=== PATIENT | female | born 1930 | race Caucasian/White ===

== ENCOUNTER → 2017-03-29 | Outpatient (CLI) | payer OTHER ==
[~2017-03-29] MED LIST: ACETAMINOPHEN325 M1 PO; ANTACID650 MG PO; ASPIRIN325 PO; COZAAR100 MG PO; FERROUS SULFAT325 M1 PO; FISH OIL 1,001000 M1 PO; FUROSEMIDE 80 M80 M1 PO; LANSOPRAZOLE30 MG PO; LEVOTHYROXINE0.05 MG PO; MOM PO; ONE DAILY MULT1 EAC2 PO; POTASSIUM20 PO; PREVACID PO; REMERON15 MG PO; SMOOTHLAX17 GM PO; SODIUM BICARBO650 M3 PO; TOPROL XL50 MG PO; ZOCOR 20 MG TAB20 M1 PO
== END ==
LOC: RAD 03:12
DX: Z12.31 Encounter for screening mammogram for malignant neoplasm of breast (principal)

== ENCOUNTER 2018-03-15 15:16 | Inpatient (IN) | payer OTHER ==
[~2018-03-15] VITALS: Ht 160 cm; Wt 69.4 kg
--- NOTE | ~2018-03-15 | H ---
[facility] [place] [address] HISTORY AND PHYSICAL Name: JESSICA MARTÍNEZ Room #: 355-P ADM IN M.R.#: [id number] Admission: 03/15/18 Attend Phys: Luke Garcia MD Discharge: Date of : [birth year] Report #: [id number] THIS REPORT FOR: //name// CC: Rohith Horne MD [facility] Luke Garcia DATE OF SERVICE: 03/15/2018 CHIEF COMPLAINT: Nausea and vomiting. HISTORY OF PRESENT ILLNESS: The patient is an 87-year-old Taiwanese female who lives at the [facility] where she has resided for approximately 10 years after having had a stroke during carotid stenting. Over the past several weeks, she has had problems with worsening dyspepsia and as of Wednesday, her nausea and vomiting has developed leaving her unable to keep anything down. She says that her appetite has definitely been off the last several weeks and she has lost some weight, although it is unclear exactly how much at this time. The patient is deemed a fair historian. She states that she has soft bowel movements with her current medication regimen, but cannot recall when her last bowel movement occurred. She has not seen any blood either in the emesis or in stools anytime recently. 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 MEDICATIONS: Her medication list at [facility] is as follows: Amlodipine, Calmoseptine p.r.n., Cepacol throat lozenges, doxycycline intermittently for dental infections, isosorbide mononitrate, Mucinex, Natural Balance Tears p.r.n., nitroglycerin, Preparation H suppositories, ranitidine 150 mg by mouth twice daily, sodium bicarbonate p.r.n. dyspepsia, Mylanta p.r.n. dyspepsia, milk of magnesia p.r.n. constipation, Tylenol p.r.n. pain or fever, MiraLax daily, levothyroxine daily, multivitamin with iron daily, mirtazapine at bedtime, simvastatin nightly, fish oil twice daily, furosemide 80 mg twice daily, metoprolol succinate 50 mg twice daily, potassium chloride 20 mEq twice daily, aspirin 325 mg daily, losartan 100 mg by mouth daily, ferrous sulfate 325 mg daily with food. The Prevacid was recently restarted and the ranitidine was stopped when the patient developed these symptoms. Change occurred in the last 1-2 weeks, I am pretty sure. DRUG ALLERGIES: INCLUDE QUINOLONES (CIPRO AND MOXIFLOXACIN BOTH CAUSE PROBLEMS), PENICILLIN, CLINDAMYCIN. [address] [address] HISTORY AND PHYSICAL Name: JESSICA MARTÍNEZ Room #: 355-P [facility] IN M.R.#: [id number] Admission: 03/15/18 Attend Phys: Luke Garcia MD Discharge: Date of : [birth year] Report #: [id number] FAMILY HISTORY: Significant for Parkinson disease in a brother who a couple of years ago, hypertension and coronary artery disease. SOCIAL HISTORY: The patient is a [place]ese woman who has a Ph.D. in education in [place]. 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 She had 2 children, one of whom, the son, of complications of multiple sclerosis and bipolar affective disorder. I believe his father also suffered from bipolar disorder. She has a remaining daughter, Layne Good and several grandchildren including a pharmacist and a soon-to-be dentist. She is a nonsmoker and does not have any vices. REVIEW OF SYSTEMS: The patient reports that she has not had any significant pain. She denies shortness of breath or headaches. She does admit to not sleeping well because of the nausea and vomiting lately. She does admit to frequently requesting and getting both Mylanta and milk of magnesia for her gastrointestinal symptoms. She denies urinary frequency. She denies dysuria. She denies fever or chills or sweats. As mentioned above, her ability to give history is fair at best. PHYSICAL EXAMINATION: VITAL SIGNS: In the Emergency Room showed temperature of 36.9 degrees Celsius on arrival with a pulse of 84, respirations of 24, oxygen saturation of 95% on room air, blood pressure of 136/108 initially and a weight of 160 pounds by report. I saw the patient in her hospital room later on in the evening and her blood pressure was significantly better with a systolic reading in the 150s and the diastolic below 100. GENERAL: Pleasant, but tired-looking elderly Taiwanese female, in no distress at the time of my visit. HEENT: The extraocular muscles are intact. The oropharynx is dry and so are the lips. The eyes appear slightly sunken. The cheeks although thinner are not hollow. Hearing is grossly normal. Speech is grossly normal. NECK: Without adenopathy or thyromegaly, mass or significant bruit tonight. LUNGS: Show bibasilar crackles without wheezes or dyspnea or tachypnea. CARDIOVASCULAR: Reveals a regular rhythm, without any significant new murmur, gallop or rub. ABDOMEN: Soft, diffusely, possibly slightly distended, but no visceromegaly or masses noted. No bruits also noted. EXTREMITIES: No cyanosis or clubbing or peripheral edema. She does have significant weakness on the left side, both upper and lower extremities as opposed to the right, although the left lower extremity is particularly more affected. Peripheral pulses easily palpated in all 4 distal extremities. MENTAL STATUS: She is alert. She is fully oriented to person and place and time. No hallucinations or delusions at the time of my examination. Her long-term memory is better than her short-term memory per gross observation. [address] [address] HISTORY AND PHYSICAL Name: JESSICA MARTÍNEZ Jerry Room #: 355-P [facility] IN M.R.#: [id number] Admission: 03/15/18 Attend Phys: Luke Garcia MD Discharge: Date of : [birth year] Report #: [id number] LABORATORY DATA: Chest x-ray shows "chronic appearing" basilar infiltrates bilaterally. CT scan of the abdomen and pelvis shows the sigmoid anastomosis, the presence of gallbladder stones or sludge without obstruction or pericholecystic fluid, 1 cm solid-appearing mass in the lower pole of left kidney, and a small to moderate size hiatal hernia, which appears decreased slightly in size from a previous study. An EKG was done in the Emergency Room that showed a normal sinus rhythm with frequent PVCs. LABORATORY DATA: Chemistry showed a sodium of 135, which is borderline low, potassium of 5.0, chloride of 101, bicarbonate 25, anion gap of 9, BUN is 39, creatinine 1.3, estimated GFR was also 39 and the nonfasting glucose is 115. Venous lactic acid level was 1.1 and normal. Serum calcium level was elevated at 11.4, with the top of normal at 10.1. The albumin was 3.9 and normal and the total protein was 8.1. The total bilirubin was normal at 0.3. The AST and ALT were normal at 20 and 16 respectively. Alkaline phosphatase was normal at 109, lipase was normal at 258. Amylase was not obtained. The CBC showed a white blood cell count of 10,900, which is about the upper limits of normal. Differential showed 70.2% segmented neutrophils, 19% lymphocytes, 9.5% monocytes, 1% eosinophils and 0.3% basophils. The ANC was 7600. The hemoglobin was 12.1 with hematocrit 36.1. Red cell indices showed a normal mean cell volume of 91.4 and normal red cell distribution width of 13.7 and the platelet count was normal at 363,000. ASSESSMENT AND PLAN: 1. Intractable nausea and vomiting with suspected weight loss -- multiple etiologies are possible in this setting. Certainly, I am concerned with her apparent lack of obstruction on CT with symptoms that suggest otherwise. Her hiatal hernia does not appear to be a problem, although recurrent chronic reflux may cause strictures, and I think this will need to be investigated endoscopically. I have requested a Gastroenterology consult with Dr. Horne. Similarly, I am suspicious of aspiration due to oropharyngeal dysphagia and I have requested a video swallow since eating tends to provoke her symptoms even more. 2. Hypercalcemia, etiology uncertain -- the patient's tendency to use milk of magnesia and/or Mylanta excessively, and especially in the presence of chronic kidney disease (GFR of 39), I suspect this is the most likely cause. Other considerations could be hyperparathyroidism and we will obtain a parathyroid hormone levels as well as 25-hydroxy vitamin D and ionized calcium to further assess this. Hypothyroidism control will be assessed with TSH. For now, we will hold these calcium-containing antacids and constipation medicines to see if that helps. IV fluids should also help dilute the situation if it is due to too much intake. Please note the patient does not drink much in the way of milk when questioned about it, so I doubt this is a case of milk-alkali syndrome. Her serum bicarbonate level further argues against this. 3. Possible aspiration pneumonia. We will start the patient on intravenous antibiotics and obtain serial chest x-rays. Her white count is not particularly [facility] [address] [place] [address] HISTORY AND PHYSICAL Name: JESSICA MARTÍNEZ Room #: 355-P ADM IN M.R.#: [id number] Admission: 03/15/18 Attend Phys: Luke Garcia MD Discharge: Date of : [birth year] Report #: [id number] impressive, but she is elderly and has multiple medical problems and certainly is at risk for aspiration given the current history. 4. New left lower pole 2 cm renal mass -- we will get an ultrasound to further assess her abdominal situation. I did mention these results with the patient tonight, but do not feel that it is part of the clinical presentation and is barely an incidental finding. The only exception might be renal cell carcinoma, which could be associated with hypercalcemia. 5. Cholelithiasis without evidence of obstruction -- if she does have gallbladder disease, she might need a more functional study such as a HIDA scan to flush this out as I believe other issues need to be addressed first. We will await the results of the ultrasound before commenting on this further. 6. Hiatal hernia and history of gastroesophageal reflux disease -- see above discussion regarding nausea, vomiting, weight loss and need for EGD and video swallow. 7. Prior stroke with residual left hemiparesis, status post attempted carotid stent -- no evidence of issues with this recently. 8. History of breast cancer without recurrence. 9. Coronary artery disease with prior history of myocardial infarction in 2001. 10. Osteoarthritis, multiple sites. 11. Hypertension. 12. Hyperlipidemia. 13. Hemorrhoids. 14. Chronic anxiety and depression. 15. Hypothyroidism. 16. Diverticulosis with prior history of sigmoid resection. <ELECTRONICALLY SIGNED> By: Luke Garcia MD 03/16/18 1055 0030 0140 Luke Garcia MD /nt
--- NOTE | ~2018-03-15 | P ---
[facility] [place] [address] PROCEDURE REPORT Name: JESSICA MARTÍNEZ Room #: 423-1 [facility] IN M.R.#: [id number] Admission: 03/15/18 Attend Phys: Luke Garcia MD Discharge: Date of : [birth year] Report #: [id number] THIS REPORT FOR: //name// CC: Luke Garcia MD INPATIENT UPPER ENDOSCOPY BRIEF HISTORY: The patient is an 87-year-old woman with multiple medical problems who presented to [facility] with nausea, vomiting and difficulty swallowing. There is also a concern for aspiration. Case was discussed in detail with Dr. Garcia and also interviewed the patient personally. She has been unable to eat. A video swallow did not reveal obvious aspiration. PREOPERATIVE DIAGNOSES: Nausea, vomiting and possibly aspiration. POSTOPERATIVE DIAGNOSES: 1. Multiple duodenal ulcers, nonbleeding. 2. Diffuse gastritis. 3. Moderately large hiatus hernia. 4. Grade B erosive esophagitis. 5. Presbyesophagus. MEDICATIONS: Deep sedation with propofol per Anesthesia. SPECIMEN: Biopsies of gastritis. ESTIMATED BLOOD LOSS: 3 mL. PROCEDURE: EGD with biopsy and Amin dilation. FINDINGS: Prior to propofol sedation, procedure of upper endoscopy was discussed with the patient as well as potential risks and its complications. She indicates she understands and desires to proceed. DESCRIPTION OF PROCEDURE: With the patient in left lateral decubitus position, the Olympus video endoscope was inserted in the cervical esophagus under direct vision without difficulty. Examination of this organ through its entire length revealed normal esophageal mucosa down to the squamocolumnar junction. The squamocolumnar junction was inspected and multiple erosions were seen, some extending in the distal body of the esophagus. There was also some tortuosity of the distal esophagus, likely related to her moderately large hiatus hernia. There is no evidence of Cruz's mucosa. There has been some dysphagia, but a definite stricturing was not seen, but this patient may be a result of esophagitis as well as tortuosity of distal esophagus. Few tertiary contractions were seen and she likely has presbyesophagus as well. The scope was advanced in a moderately large hiatus hernia. A small amount of fluid was [facility] [address] [place] [address] PROCEDURE REPORT Name: JESSICA MARTÍNEZ Room #: 423-1 ADM IN M.R.#: [id number] Admission: 03/15/18 Attend Phys: Luke Garcia MD Discharge: Date of : [birth year] Report #: [id number] seen at the hiatus hernia. The fluid was aspirated away. The scope was advanced in the stomach, was examined on end view as well as retroflexed views. There was a pattern of a diffuse gastritis with a few erosions in the antrum, but no ulcers were seen. Upon retroflexion, the hiatus hernia was seen, but a mass lesion was not seen. Biopsies obtained of the gastritis. Scope was advanced in the duodenal bulb and multiple duodenal ulcers were seen. The largest was no more than about 8 mm. They had a minimal to moderate depth. There was no evidence of active bleeding. No exposed vessels or clots were seen. There was also mucosal edema, but the scope did pass into duodenum without difficulty. There was no evidence of obstruction. There were few ulcers in the proximal second portion of the duodenum, but beyond that was normal. There was no evidence of obstruction. At that point, the scope was slowly withdrawn and careful circumferential views confirmed the above findings. The patient tolerated the procedure well. Due to problem of dysphagia, a 50-Hungarian Amin dilator was passed with no resistance. The patient tolerated the procedure well. DISPOSITION: The patient with multiple GI problems as noted above. She does have active duodenal ulcer disease. We will place her on a PPI. We will follow up on biopsies obtained today as well. She certainly may be refluxing and aspirating. Antireflux measures will be helpful. As far as her vomiting, that may be a result of her duodenal ulcers. By: 1418 2315 Talon Edwards MD /stephanie
--- NOTE | ~2018-03-15 | D ---
[facility] [place] [address] DISCHARGE SUMMARY Name: JESSICA MARTÍNEZ Room #: 224-P [facility] IN M.R.#: [id number] Admission: 03/15/18 Attend Phys: Lacie Hayes MD Discharge: 03/22/18 Date of : [birth year] Report #: [id number] THIS REPORT FOR: //name// CC: [facility] Luke Hayes DATE OF SERVICE: 03/21/2018 ANTICIPATED DATE OF DISCHARGE: 03/22/2018. HOSPITAL COURSE: The patient is an 87-year-old Samoan female who was admitted with intractable nausea and vomiting. Chest x-ray showed "chronic appearing" basilar infiltrates bilaterally. She was started on treatment for pneumonia with nebulizer medications for pulmonary toilet and azithromycin only (see list of drug allergies for multiple antibiotic intolerances). Swallowing study suggested that she did not have a severe dysphagia, although there was suggestion that she might have some mild dysphagia. With supportive care the patient began feeling better. GI consult was also obtained and the weatherization coordinator from Dr. Choi, Dr. Edwards, Dr. Horne and Dr. Miranda's group put her back on a proton pump inhibitor, which she had been on previously for a number of years and had recently been downgraded to a H2 receptor lew due to her insurance policy. The patient clearly improved with the resumption of proton pump inhibitor therapy. Complicating matters, she was found to have significant hypercalcemia and hypermagnesemia, the former being about 11.5 on arrival and the first magnesium level was about 2.8 and both are considered to be elevated. The patient was taken off of the Mylanta and the milk of magnesia medications that were being given as needed for dyspepsia and constipation. Coupled with aggressive rehydration therapy with IV fluids, the patient's calcium improved and her magnesium began improving, and subsequently her coughing improved and her vomiting resolved. She did undergo upper endoscopy, which showed multiple shallow duodenal ulcers and antral erosions and a moderately large hiatal hernia, which was felt could contribute to regurgitation and possible aspiration (see chest x-ray readings above). H. pylori was tested for and found to be absent from her stomach biopsies. In addition to the above, the patient also had at least a grade B esophagitis. Given her rapid improvement with supportive care as outlined above, it was felt that the patient will most likely be best served with lifelong proton pump inhibitor therapy. The patient was also found to have significant blood pressure elevations during this admission. She was put back on her amlodipine at 5 mg daily and this was increased to 10 mg daily. Her losartan was increased from 50 up to [address] [address] DISCHARGE SUMMARY Name: JESSICA MARTÍNEZ Room #: 224-P [facility] IN M.R.#: [id number] Admission: 03/15/18 Attend Phys: Lacie Hayes MD Discharge: 03/22/18 Date of : [birth year] Report #: [id number] and she was maintained on her metoprolol at 50 mg twice daily. Her blood pressures had decreased to a systolic range of about 140-150 at the time of discharge and given the prolonged improvement in blood pressure control with increased doses of amlodipine, it is felt that this is adequate for now and will possibly even lower her blood pressure excessively later, and then need to be reduced. The patient is also on diuretic therapy with hydrochlorothiazide for blood pressure. At the time of discharge the patient is on the following medications: Mirtazapine 15 mg by mouth nightly, simvastatin 10 mg by mouth nightly, acetaminophen 325 mg 2 tablets by mouth every 4 hours as needed for pain, furosemide 80 mg by mouth every morning, metoprolol succinate 50 mg by mouth twice daily, potassium chloride 20 mEq by mouth twice daily, aspirin 325 mg by mouth daily, levothyroxine 50 mcg by mouth daily, multivitamin 1 by mouth daily, Calmoseptine ointment as needed, isosorbide mononitrate 60 mg by mouth daily, natural tears as needed for dry eyes, nitroglycerin 0.4 mg sublingual every 5 minutes up to 3 times per episode of chest pain, Preparation-H suppositories as needed for hemorrhoidal irritation, Lacrilube ointment apply to her lower eyelids at bedtime every night, amlodipine 10 mg by mouth nightly, losartan 100 mg by mouth nightly, lorazepam 0.5 mg at bedtime as needed for anxiety or insomnia up to 30 days only, hydrochlorothiazide 12.5 mg by mouth daily in the morning, MiraLax 17 grams by mouth twice daily in a glass of water and pantoprazole 40 mg by mouth daily. She would be on a soft mechanical diet with thin liquids and will return to [facility] for further care. I will follow her there. DISCHARGE DIAGNOSES: 1. Intractable nausea and vomiting due to #2. 2. Multiple gastric and duodenal ulcers. 3. Moderately large hiatal hernia. 4. Grade B esophagitis. 5. Hypertension. 6. History of coronary artery disease. 7. History of carotid occlusive disease. 8. History of stroke, status post stenting of carotid occlusive disease. 9. Osteoarthritis, multiple sites. 10. Chronic left hemiparesis from prior stroke. 11. Chronic anxiety. 12. Hypercalcemia with elevated parathyroid hormone levels and normal vitamin D (suspicious for parathyroid adenoma). 13. Hypermagnesemia. 14. Excessive antacids and constipation medicines. This is a note reflecting the hypercalcemia and hypermagnesemia mentioned above. The patient was worked up for vitamin D adequacy and this was normal. The patient had a parathyroid hormone level that was elevated in the presence of [facility] [address] [place] [address] DISCHARGE SUMMARY Name: JESSICA MARTÍNEZ Jerry Room #: 224-P [facility] IN M.R.#: [id number] Admission: 03/15/18 Attend Phys: Lacie Hayes MD Discharge: 03/22/18 Date of : [birth year] Report #: [id number] hypercalcemia and this suggests the presence of parathyroid adenoma. With adequate intravenous hydration, her calcium level fell from 11.5 down to less than 9.5. I discussed this matter at length with the family. We also did an ultrasound of the thyroid area looking for parathyroid adenoma. 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 A separate parathyroid adenoma could not be distinguished. If a further workup is needed in the future, for example if her calcium levels rise again, we could then consider a sestamibi parathyroid scan. However, in the event that her calcium levels remain low or manageable, the likelihood of parathyroid adenoma would be small and could be managed either surgically with parathyroidectomy or medically with Sensipar. My plan is to continue monitoring her calcium levels intermittently and I have explained these findings to the patient and her daughter, Layne, and they are agreeable to proceeding down this route. The patient is particularly anxious to avoid any unnecessary surgeries and I agree. <ELECTRONICALLY SIGNED> By: Luke Garcia MD 03/25/18 1057 [id number] 28 Luke Garcia MD /nt
--- NOTE | ~2018-03-15 | EKG ---
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: eddi : 1930 Requested By: Kota Riojas Order Number: [id number] MD: Ricardo Malave Measurements Intervals [place] Rate: 83 P: 38 AK: 194 QRS: 4 QRSD: 97 T: 33 QT: 405 QTc: 476 Interpretive Statements Sinus rhythm Multiform ventricular premature complexes Compared to ECG 05/29/2011 09:10:51 Ventricular premature complex(es) now present Electronically Signed On 03-15-2018 16:40:04 CDT by Ricardo Malave [email or web address] <ELECTRONICALLY SIGNED> By: Ricardo Malave MD 03/15/18 1640 1547 154 Ricardo Malave MD /[email or web address]
--- NOTE | ~2018-03-15 | HC ---
[facility] [place] [address] CONSULTATION Name: JESSICA MARTÍNEZ Room #: 423-1 [facility] IN .R.#: [id number] Admission: 03/15/18 Attend Phys: Luke Garcia MD Discharge: Date of : [birth year] Report #: [id number] THIS REPORT FOR: //name// CC: Luke Garcia MD DATE OF SERVICE: 03/16/2018 GASTROENTEROLOGY CONSULTATION PATIENT OF: Luke Garcia M.D. CHIEF COMPLAINT: This is a very pleasant 87-year-old [place] female who I am asked to evaluate for possible etiologies of ongoing nausea and vomiting. The patient denies any abdominal pain. She has had some constipation recently. Her stools have been brown in color. There has been no history of hematemesis, hematochezia or melena. PAST MEDICAL HISTORY: Significant for breast cancer. 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 She has a history of coronary artery disease and had a myocardial infarction in the past. She has a history of hypertension, hyperlipidemia, hypothyroidism, diverticulosis, colon polyps, osteoarthritis, anxiety and depression and a history of hemorrhoids. PAST SURGICAL HISTORY: Significant for a partial sigmoid resection. ALLERGIES: QUINOLONES, SPECIFICALLY CIPROFLOXACIN AND MOXIFLOXACIN. SHE IS ALSO ALLERGIC TO CLINDAMYCIN AND PENICILLIN. MEDICATIONS: Her medications prior to admission included acetaminophen, Norvasc, aspirin 325 mg daily, Cepacol throat lozenges, Natural Balance eyedrops, doxycycline 100 mg p.o. b.i.d., iron supplements, Lasix, Mucinex, Imdur, Prevacid, levothyroxine 50 mcg, Cozaar, milk of magnesia, Calmoseptine ointment, metoprolol, mineral oil with petrolatum, mirtazapine, multiple vitamins, Nitrostat, Greenway-3 fish oil, Preparation-H suppositories, polyethylene glycol powder, potassium supplements, Zantac, simvastatin, antiacid tablets, Aldactone and Witch Jessica tucks or pads. SOCIAL HISTORY: The patient lives at the [facility]. She does not smoke or drink alcohol. She is a . She has a Ph.D. in Education from [employer]. FAMILY HISTORY: Negative for gallbladder disease, colon polyps and colon carcinoma, Crohn's disease and ulcerative colitis. [address] [address] CONSULTATION Name: JESSICA MARTÍNZE Room #: 423-1 [facility] IN .R.#: [id number] Admission: 03/15/18 Attend Phys: Luke Garcia MD Discharge: Date of : [birth year] Report #: [id number] REVIEW OF SYSTEMS: She denies any dysphagia, odynophagia, gastroesophageal reflux or peptic ulcer disease. She has had a history of a hiatal hernia. She has been losing weight recently because of a poor appetite and she is afraid to eat because of the nausea and vomiting. She has chronic constipation, has been taking a lot of antacids for this. This may be another etiology of her hypercalcemia, as you have suspected. She denies any diarrhea. She denies any hematemesis, hematochezia or melena. She denies any abdominal pain. PHYSICAL EXAMINATION: GENERAL: Reveals a well-developed, well-nourished 87-year-old white female, in no apparent distress at the time of the examination. She is awake, alert, oriented x 4 and cooperative and very pleasant to converse with. HEENT: She is normocephalic, atraumatic and anicteric. HEART: Rate and rhythm are regular, with a normal S1 and S2. She does have a grade 2/6 systolic murmur. LUNGS: Clear bilaterally. ABDOMEN: Soft. She feels as if her abdomen is distended. Bowel sounds are present in all 4 quadrants. She is tympanic to percussion. There is no palpable organomegaly or mass. There is tenderness in the epigastrium and in the right upper quadrant, but no rebound or guarding. EXTREMITIES: Warm and dry. No peripheral cyanosis, clubbing or edema. NEUROLOGIC: She has a left-sided paralysis. SIGNIFICANT LABORATORY DATA: Creatinine is 1.2 today. Magnesium 2.8. Liver enzymes are normal. Lactate level is 1.1. CBC shows a white count of 10.9, hemoglobin 12.1, hematocrit 91.4. Indices and RDW are all within normal limits. Platelets are 363,000. Sed rate is 41. TSH is 2.275. Urinalysis is pending. The patient has had speech evaluation, but I do not have the results of that yet from this morning. She has had an ultrasound of the abdomen that showed an indeterminate mass in the inferior pole of the left kidney. This is hypoechoic and likely represents either a complex hemorrhagic cortical cyst or a solid renal mass. Gallstones were also seen, but no choledocholithiasis or ductal dilatation was seen. CT scan of the abdomen was done yesterday and showed small gravel-like gallstones. No liver lesions. No ductal dilatation. Pancreas was unremarkable. Again, the 2.5-cm solid-appearing left lower pole renal mass is present. There was a small moderate hiatal hernia. It should be noted that on the CT scan done on 05/28/2011, the patient had bilateral renal lesions, some were subtle, which were hyperdense and probably represented hemorrhagic cysts. One area was only slightly hyperdense in the posterior right kidney and was indeterminate. Small solid masses could not be excluded at that time. For this reason, it does sound like this renal mass may be a different mass as it is in the left kidney. Significant laboratory data was included here. IMPRESSION: 1. Nausea, vomiting, anorexia, and weight loss of uncertain etiology, with [facility] [address] [place] [address] CONSULTATION Name: JESSICA MARTÍNEZ Room #: 423-1 ADM [place] [facility]#: [id number] Admission: 03/15/18 Attend Phys: Luke Garcia MD Discharge: Date of : 09/[birth year] Report #: [id number] tenderness to palpation in the epigastrium and right upper quadrant. The patient has possible dysphagia with aspiration. She has a new cough. Speech Therapy is evaluating her currently with a video swallow to determine if she is aspirating. She has a history of laryngospasm, when Dr. Miranda tried to do an EGD on her in 2016. 2. Cholelithiasis, symptomatic? No ductal dilatation. Liver enzymes and lipase are normal. 3. Diverticulosis with a history of partial sigmoid resection. Last colonoscopy was in [address] Miranda and revealed only uncomplicated left-sided diverticulosis and a resected sigmoid was also seen. 4. Left lower pole renal mass 2.6; complex cyst versus malignancy. 5. History of a right cerebrovascular accident with left hemiparesis. 6. History of left breast cancer with mastectomy. 7. Hypertension. 8. Hyperlipidemia. 9. Hypothyroidism. 10. Hypercalcemia that resolved with hydration. The patient has been taking antacids prior to this. 11. History of colon polyps, hemorrhoids and constipation. 12. Anxiety and depression. RECOMMENDATIONS: 1. My recommendations were for her to have an EGD tomorrow morning. We will check a PIPIDA scan to evaluate her right upper quadrant pain more thoroughly as she does have cholelithiasis and tenderness at Walters's point to palpation as well as epigastric tenderness. 2. Proton pump inhibitors are appropriate. Thank you very much once again for allowing me to participate in her care. <ELECTRONICALLY SIGNED> By: Jeanne Choi DO 03/17/18 [id number] Jeanne Choi DO /nt
--- NOTE | ~2018-03-15 | PATH ---
[facility] [address] [address] PATHOLOGY RPT PROCEDURE Name: JESSICA MAY Room #: 224-P [facility] IN M.R.#: [id number] Admission: 03/15/18 Date of : [birth year] Discharge: Report #: [id number] Path Case #: [id number] [facility] Accession Number: [id number] . 01 Material submitted: . GASTRITIS R/O HPYLORI BX . 01 Clinical history: . Pre-OP DX: Nausea, vomiting, dysphagia Post-OP DX: Gastritis, duodenal ulcer, esophagitis . 02 Diagnosis: Gastric mucosa, gastritis rule out H. pylori, endoscopic biopsy: - Mild chronic active gastritis. - Negative for intestinal metaplasia, dysplasia or atrophy. - Negative for definite Helicobacter Pylori (see comment). 03/21/2018 . 02 Comment: No definite organisms are identified on well-controlled Helicobacter pylori immunohistochemical stain performed on block A1.Erica test is reported as negative as well. Please refer to a separate report. (IUV:pit; 03/21/2018) . 02 Electronically signed: . Renee Dumont MD, Pathologist NPI- [id number] . 01 Gross description: . Received in formalin labeled "Jessica May, gastritis, rule out H. pylori," are 5 segments of goldstein soft tissue measuring 1.5 x 0.9 x 0.3 cm in aggregate dimensions and ranging from 0.3 to 0.6 cm in maximum dimension. The specimen is submitted entirely in cassette A1. (TSD; 03/18/2018) TOB/TOB . 02 Pathologist provided ICD-10: K29.50 . 02 CPT . 998176, [id number] Performed at: [address] [id number] MD Jose Cooley MD Phone: [phone] Performed at: 02 [facility] [address] [place] [address] PATHOLOGY RPT PROCEDURE Name: JESSICA MAY Room #: 224-P ADM IN M.R.#: [id number] Admission: 03/15/18 Date of : [birth year] Discharge: Report #: [id number] Path Case #: [id number] [address] [place] [id number] MD Renee Dumont MD Phone: [phone]
[~2018-03-15 15:16] MED LIST changes: -LEVOTHYROXINE0.05 MG PO; +LEVOTHYROXINE50 MCG PO
[2018-03-15 15:57] LABS: ABSOLUTE NEUTROPHILS 7.6 thou/uL (1.4-8.2); BASOPHILS 0.3 % (0.0-2.0); HEMATOCRIT 36.1 % (37.0-47.0); HEMOGLOBIN 12.1 gm/dL (12.0-15.0); MCH 30.6 pg (26.0-34.0); MCHC 33.5 g/dL (28.0-37.0); MCV 91.4 fL (80.0-100.0); MONOCYTES 9.5 % (1.0-8.0); PLATELET COUNT 363 thou/uL (150-400); POLYS 70.2 % (36.0-66.0); RBC 3.95 mil/uL (4.20-5.00); RDW 13.7 % (10.5-14.5); WBC 10.9 thou/uL (4.0-11.0)
[2018-03-15] MEDS ORDERED: NORVASC5 MG PO (16:02)
[2018-03-15] MEDS ORDERED: CALMOSEPTINE O3.5 GM TOP (16:06)
[2018-03-15] MEDS ORDERED: CEPACOL SORE T1 EAC7 PO (16:06)
[2018-03-15 16:09] LABS: CALCIUM 11.4 mg/dL (8.5-10.1); CREATININE 1.3 mg/dL (0.6-1.0)
[2018-03-15] MEDS ORDERED: DOXYCYCLINE 10100 MG PO (16:10)
[2018-03-15] MEDS ORDERED: IMDUR 60 MG TAB60 M1 PO (16:11)
[2018-03-15] MEDS ORDERED: MUCINEX600 MG PO (16:12)
[2018-03-15] MEDS ORDERED: NATURAL BALANCE15 M1 OPHTHALMIC (16:13)
[2018-03-15 16:14] LABS: ALBUMIN 3.9 g/dL (3.4-5.0); TOTAL BILIRUBIN 0.3 mg/dL (<0.1-1.0); TOTAL PROTEIN 8.1 g/dL (6.4-8.2)
[2018-03-15] MEDS ORDERED: NITROSTAT0.4 M1 SUBLING (16:14)
[2018-03-15] MEDS ORDERED: PREPARATION H1 EAC5 RECTAL (16:27)
[2018-03-15] MEDS ORDERED: ZANTAC 150MG T150 MG PO (16:28)
[2018-03-15] MEDS ORDERED: ANTACID650 MG PO (16:30)
[2018-03-15 18:20] VITALS: BP 162/65
[2018-03-15 18:40] VITALS: BP 184/79
[2018-03-15 20:00] VITALS: BP 156/73
[2018-03-15] MEDS ORDERED: REFRESH LACRI-3.5 GM (20:56)
[2018-03-15] MEDS ORDERED: ALDACTONE25 MG PO (20:57)
[2018-03-15] MEDS ORDERED: TUCKS1 EAC1 TOP (20:58)
[2018-03-16] VITALS: BP 139/64
[2018-03-16 04:35] VITALS: BP 155/64
[2018-03-16 05:35] LABS: CALCIUM 9.9 mg/dL (8.5-10.1); CREATININE 1.2 mg/dL (0.6-1.0); MAGNESIUM 2.8 mg/dL (1.8-2.4); POTASSIUM 4.5 mmol/L (3.5-5.1)
[2018-03-16 07:25] LABS: CALCIUM 9.6 mg/dL (8.5-10.1); CREATININE 1.2 mg/dL (0.6-1.0); PHOSPHORUS 3.5 mg/dL (2.5-4.9)
[2018-03-16 07:57] VITALS: BP 158/69
[2018-03-16 12:19] VITALS: BP 152/58
[2018-03-16 15:37] VITALS: BP 149/61
[2018-03-16 17:12] LABS: CALCIUM IONIZED* 5.8 mg/dL (4.5-5.6)
[2018-03-16 19:45] VITALS: BP 150/47
[2018-03-17 03:40] VITALS: BP 147/47
[2018-03-17 06:10] LABS: 25-HYDROXY TOTAL 33.8 ng/mL (30.0-100.0)
[2018-03-17 19:54] VITALS: BP 148/55
[2018-03-18 04:25] VITALS: BP 175/61
[2018-03-18 09:00] VITALS: BP 155/78
[2018-03-18 09:14] VITALS: BP 155/78
[2018-03-18 09:45] LABS: HEMATOCRIT 32.8 % (37.0-47.0); HEMOGLOBIN 11.1 gm/dL (12.0-15.0); MCH 31.1 pg (26.0-34.0); MCHC 33.9 g/dL (28.0-37.0); MCV 91.7 fL (80.0-100.0); RBC 3.58 mil/uL (4.20-5.00)
[2018-03-18 09:52] LABS: CALCIUM 9.4 mg/dL (8.5-10.1); CREATININE 0.8 mg/dL (0.6-1.0); POTASSIUM 4.1 mmol/L (3.5-5.1)
[2018-03-18 15:50] VITALS: BP 155/78
[2018-03-18 20:10] VITALS: BP 164/72
[2018-03-19 04:48] VITALS: BP 168/65
[2018-03-19 06:56] VITALS: BP 186/88
[2018-03-19 15:16] VITALS: BP 172/99
[2018-03-19 20:00] VITALS: BP 153/65
[2018-03-20 07:30] VITALS: BP 190/77
[2018-03-20 11:45] VITALS: BP 157/72
[2018-03-20 20:00] VITALS: BP 149/75; BP 158/82
[2018-03-21 06:49] VITALS: BP 140/59; BP 146/56
[2018-03-21 06:52] VITALS: BP 140/59
[2018-03-21 07:13] LABS: HEMATOCRIT 31.7 % (37.0-47.0); HEMOGLOBIN 10.6 gm/dL (12.0-15.0); MCH 30.5 pg (26.0-34.0); MCHC 33.4 g/dL (28.0-37.0); MCV 91.3 fL (80.0-100.0); RBC 3.47 mil/uL (4.20-5.00); WBC 7.4 thou/uL (4.0-11.0)
[2018-03-21 07:27] LABS: CALCIUM 9.3 mg/dL (8.5-10.1); CREATININE 1.1 mg/dL (0.6-1.0); POTASSIUM 4.1 mmol/L (3.5-5.1)
[2018-03-21 20:08] VITALS: BP 135/54
[2018-03-21] MEDS ORDERED: AMLODIPINE BESY10 MG PO (20:27)
[2018-03-21] MEDS ORDERED: COZAAR100 MG PO (20:28)
[2018-03-21] MEDS ORDERED: ATIVAN0.5 MG PO (20:30)
[2018-03-21] MEDS ORDERED: HYDROCHLOROTH12.5 M1 PO (20:31)
[2018-03-21] MEDS ORDERED: MIRALAX17 GM PO (20:32)
[2018-03-21] MEDS ORDERED: PANTOPRAZOLE SO40 M1 PO (20:32)
[2018-03-22 08:08] VITALS: BP 148/62
== END 2018-03-22 12:35 | DRG 382 ==
LOC: ER 15:16 → EROBS 17:28 → 3W 17:28 → 4E 03-17 05:49 → SICU 03-19 17:05
PROVIDERS: Emergency Medicine; Internal Medicine
PROC: 0DB68ZX Excision of Stomach, Via Natural or Artificial Opening Endoscopic, Diagnostic (ICD-10-PCS; principal; 2018-03-18)
DX: K22.10 Ulcer of esophagus without bleeding (principal); K26.9 Duodenal ulcer, unspecified as acute or chronic, without hemorrhage or perforation; K29.00 Acute gastritis without bleeding; K21.0 Gastro-esophageal reflux disease with esophagitis; I10 Essential (primary) hypertension; E78.5 Hyperlipidemia, unspecified; E78.00 Pure hypercholesterolemia, unspecified; F32.9 Major depressive disorder, single episode, unspecified; F41.9 Anxiety disorder, unspecified; I25.10 Atherosclerotic heart disease of native coronary artery without angina pectoris; M19.90 Unspecified osteoarthritis, unspecified site; K80.20 Calculus of gallbladder without cholecystitis without obstruction; E03.9 Hypothyroidism, unspecified; K57.90 Diverticulosis of intestine, part unspecified, without perforation or abscess without bleeding; N28.89 Other specified disorders of kidney and ureter; K44.9 Diaphragmatic hernia without obstruction or gangrene; K59.00 Constipation, unspecified; E83.41 Hypermagnesemia; E83.52 Hypercalcemia; E21.3 Hyperparathyroidism, unspecified; K22.8 Other specified diseases of esophagus; I25.2 Old myocardial infarction; Z86.73 Personal history of transient ischemic attack (TIA), and cerebral infarction without residual deficits; Z79.899 Other long term (current) drug therapy; Z79.82 Long term (current) use of aspirin; Z88.0 Allergy status to penicillin; Z88.8 Allergy status to other drugs, medicaments and biological substances; Z85.3 Personal history of malignant neoplasm of breast; Z90.12 Acquired absence of left breast and nipple; Z90.49 Acquired absence of other specified parts of digestive tract
CPT/HCPCS: 10080; 10783; 15002; 62110; 62900; 70005

== ENCOUNTER → 2018-04-07 | Outpatient (CLI) | payer OTHER ==
[~2018-04-07] MED LIST changes: +ALDACTONE25 MG PO; +AMLODIPINE BESY10 MG PO; +ATIVAN0.5 MG PO; +CALMOSEPTINE O3.5 GM TOP; +CEPACOL SORE T1 EAC7 PO; +DOXYCYCLINE 10100 MG PO; +HYDROCHLOROTH12.5 M1 PO; +IMDUR 60 MG TAB60 M1 PO; +MIRALAX17 GM PO; +MUCINEX600 MG PO; +NATURAL BALANCE15 M1 OPHTHALMIC; +NITROSTAT0.4 M1 SUBLING; +NORVASC5 MG PO; +PANTOPRAZOLE SO40 M1 PO; +PREPARATION H1 EAC5 RECTAL; +REFRESH LACRI-3.5 GM; +TUCKS1 EAC1 TOP; +ZANTAC 150MG T150 MG PO
== END ==
LOC: RAD 03:16
DX: Z12.31 Encounter for screening mammogram for malignant neoplasm of breast (principal)